=== PATIENT | female | born 1970 | race Caucasian/White ===

== ENCOUNTER 2020-06-27 14:14 | Emergency (ER) | payer OTHER ==
--- NOTE | 2020-06-27 14:54 | CT ---
EXAM: Brain CTWithout contrast: HISTORY: Injury from trauma COMPARISON: None FINDINGS: No focal mass or midline shift. No intra or extra-axial hemorrhage. Sinuses and mastoids are clear of acute process. IMPRESSION: No mass or bleed or other significant acute intracranial process.
--- NOTE | 2020-06-27 14:59 | CT ---
EXAM: CT scan cervical spineWithout contrast: HISTORY: Injury from trauma COMPARISON: None FINDINGS: No evidence for acute fracture or facet dislocation. No significant malalignment. No prevertebral soft tissue swelling. Disc osteophytosis evidence for spondylosis. IMPRESSION: No evidence for acute fracture or facet dislocation or other significant acute process.
--- NOTE | 2020-06-27 15:03 | CT ---
Exam: Lumbar spine CT scan without IV contrast: HISTORY: Back pain from trauma FINDINGS: Bilateral nonobstructing renal calculi. Moderate levoscoliosis of the lumbar vertebral column. Genera lized disc osteophytosis and facet arthrosis. No evidence for acute lumbar spine fracture. IMPRESSION: No evidence for acute lumbar spine fracture or dislocation. Other findings as above.
[2020-06-27] MEDS ORDERED: Boostrix 0.5 ML (Tdap) VIAL ONE (15:08)
--- NOTE | 2020-06-27 15:16 | CT ---
Exam: Thoracic spine CT scan without IV contrast: HISTORY: Back pain following injury from trauma S-shaped scoliosis of the thoracolumbar vertebral column. No evidence for acute fracture or dislocati on. No evidence for associated pneumothorax involving the visualized lungs. Evidence for bilateral renal calculi. No significant associated stenosis. Generalized disc osteophytosis. IMPRESSION: No significant acute fracture or dislocation. S-shaped scoliosis. Findings concerning the brain CT, cervical spine CT, lumbar spine CT, and thoracic spine CT were disc ussed with Dr. Galan at 5:03 PM CODE CR
[2020-06-27 15:21] LABS: #Basophils 0.1 thou/uL (0.0-0.2); #Eosinphils 0.1 thou/uL (0.0-0.7); #Lymphocytes 1.6 thou/uL (1.20-3.40); #Neutrophils 10.9 thou/uL (1.40-6.50); %Basophils 0.4 % (0.0-1.0); %Eosinophils 0.9 % (0.0-10.0); %Lymphocytes 11.9 % (21.0-51.0); %Monocytes 7.4 % (0.0-10.0); %Neutrophils 79.4 % (42.0-75.0); Hemoglobin 13.7 g/dL (12.0-16.0); Mean Corpuscular HGB CONC 34.7 g/dL (32.0-36.0); Mean Corpuscular Hemoglobin 33.4 pg (27.0-31.0); Mean Corpuscular Volume 96.2 fL (78.0-98.0); Mean Platelet Volume 7.9 fL (7.4-10.4); Platelet Count 196 thou/uL (130-400); RBC Distribution Width 11.5 % (11.5-14.5); Red Blood Cell (RBC) Count 4.09 mill/uL (4.20-5.40); White Blood Cell (WBC) Count 13.7 thou/uL (4.8-10.8)
[2020-06-27 15:37] LABS: Anion Gap 14 mmol/L (10-20); Carbon Dioxide 22 mmol/L (22-29); Chloride 106 mmol/L (98-107); Potassium 3.7 mmol/L (3.5-5.1); Sodium 138 mmol/L (136-145)
[2020-06-27 15:38] LABS: ALT (SGPT) 13 U/L (8-55); AST (SGOT) 20 U/L (5-34); Albumin 4.1 g/dL (3.5-5.0); Alkaline Phosphatase 52 U/L (40-110); BUN (Urea Nitrogen) 14 mg/dL (7.0-18.7); Bilirubin, Total 0.4 mg/dL (0.2-1.2); Calc. Creatinine Clearance 0 mL/min (70-130); Calcium 8.8 mg/dL (7.8-10.44); Globulin 3.1 g/dL (2.4-3.5); Glucose 88 mg/dL (70-105); Protein, Total 7.2 g/dL (6.0-8.3)
--- NOTE | 2020-06-27 16:13 | RAD ---
Exam: Chest one view HISTORY:Trauma Comparison: 05/23/2018 FINDINGS: Cardiac silhouette: Normal Aorta: Unremarkable Pulmonary vessels: Normal Costophrenic angles: Clear LUNGS: No masses or consolidation. Pneumothorax: No pneumothorax on this supine projection Osseous abnormalities: Old left rib fractures. IMPRESSION: No acute cardiopulmonary process.
--- NOTE | 2020-06-27 16:15 | RAD ---
Exam: One view pelvis HISTORY: Patient ran over by a horse. Trauma. Pain. FINDINGS: Single view pelvis: Sacral ala are preserved. Intact bony pelvis. Contour of the left and r ight femoral head/femoral neck are maintained. Symmetric hip joint spaces. Intact obturator ring. IMPRESSION: No fracture.
--- NOTE | 2020-06-27 16:17 | RAD ---
Exam:Right forearm 2 views HISTORY: Bruising. Trauma. COMPARISON: None FINDINGS: No fracture, cortical irregularity or periosteal reaction. IMPRESSION: No fracture.
--- NOTE | 2020-06-27 16:25 | RAD ---
Exam:Left shoulder 3 views HISTORY: Trauma. Pain. COMPARISON: 05/23/2018 FINDINGS: No fracture, cortical irregularity or periosteal reaction. Glenohumeral joint space is pres erved. No dislocation. IMPRESSION: No fracture. No dislocation.
[2020-06-27] MEDS ORDERED: Meclizine HCl 25 MG TAB ONE (16:27)
[2020-06-27] MEDS ORDERED: Diazepam 5 MG TAB ONE (17:01)
== END 2020-06-27 17:49 | disposition home or self-care (01) ==
LOC: ERS 14:14
DX: S06.0X9A Concussion with loss of consciousness of unspecified duration, initial encounter (principal); S50.811A Abrasion of right forearm, initial encounter; M54.5 Low back pain; W55.12XA Struck by horse, initial encounter; F17.210 Nicotine dependence, cigarettes, uncomplicated
CPT/HCPCS: 36415; 70450; 71045; 72125; 72128; 72131; 72170; 80053; 85025; 90715; 93005; G0390